=== PATIENT | female | born 1975 | race Caucasian/White ===

== ENCOUNTER 2018-06-05 20:22 | Outpatient (REF) | payer OTHER, SELFPAY ==
[2018-06-05 20:36] LABS: HCT 43.3 % (36.0-46.0); HGB 14.4 g/dL (12.0-15.5); Mean Corp. HGB Concentration 33.3 g/dL (32.0-36.0); Mean Corpuscular Hemoglobin 29.4 pg (27.0-33.0); Mean Corpuscular Volume 88.5 fL (80-95); Mean Platelet Volume 10.6 fL (8.0-11.0); Platelet Count 301 x1000/uL (130-400); RBC 4.89 m/cumm (4.00-5.20); RBC Distribution Width 12.6 % (11.7-14.6); White Blood Cell Count 9.29 k/cumm (4.4-10.8)
[2018-06-05 21:17] LABS: ESR 16 MM/HR (0-20)
[2018-06-05 23:06] LABS: ALT 24 U/L (12-78); AST 14 U/L (15-37); Albumin 4.1 g/dL (3.4-5.0); Alkaline Phosphatase 86 U/L (46-116); BUN 11 mg/dL (7-18); Bilirubin, Total 0.6 mg/dL (0.2-1.0); CREATININE 0.79 mg/dL (0.55-1.02); Calcium 9.7 mg/dL (8.5-10.1); Chloride 102 mmol/L (98-107); Glucose 93 mg/dL (70-100); Potassium 4.3 mmol/L (3.5-5.1); Sodium 139 mmol/L (136-145); Total Protein 7.5 g/dL (6.4-8.2)
[2018-06-07 12:50] LABS: Hepatitis A Antibody IgM Negative (NEGAT); Hepatitis B Core Antibody Negative (NEGAT); Hepatitis B surface Ag Negative (NEGAT); Hepatitis C Ab w Rflx HCV PCR Negative (NEGAT)
== END 2018-06-05 20:42 ==
LOC: NCHCN 20:22
PROVIDERS: PCP Family Medicine; Visit Provider Family Medicine
DX: R19.7 Diarrhea, unspecified (principal)
CPT/HCPCS: 80053; 85027; 85652; 86704; 86709; 86803; 87340

== ENCOUNTER 2018-06-06 06:54 | Outpatient (REF) | payer OTHER, SELFPAY ==
[2018-06-07 10:35] LABS: Campylobacter PCR SEE COMMENTS; Salmonella PCR SEE COMMENTS; Shiga Toxin PCR SEE COMMENTS; Shigella/Enteroinvasive Ecoli SEE COMMENTS
== END 2018-06-06 07:14 ==
LOC: NCHCN 06:54
PROVIDERS: PCP Family Medicine; Visit Provider Family Medicine
DX: R19.7 Diarrhea, unspecified (principal)
CPT/HCPCS: 87329; 87505; 83630; 87177; 87324

== ENCOUNTER 2018-06-08 13:07 | Emergency (ER) | payer OTHER, SELFPAY ==
[2018-06-08 13:12] VITALS: BP 164/114; PULSE 122; RESP 22; TEMP 37.2; O2SAT 98
[2018-06-08 13:45] LABS: Abs Immature Grans 0.02 k/cumm (0.0-0.09); Absolute Basophil Count 0.04 k/cumm (0.0-0.2); Absolute Eosinophil Count 0.26 k/cumm (0.0-0.7); Absolute Neutrophil Count 6.49 k/cumm (1.2-6.7); Basophils % 0.4; Eosinophils % 2.4; HCT 43.4 % (36.0-46.0); HGB 14.9 g/dL (12.0-15.5); Immature Grans % 0.2; Lymphocytes % 29.3; Mean Corp. HGB Concentration 34.3 g/dL (32.0-36.0); Mean Corpuscular Hemoglobin 29.9 pg (27.0-33.0); Mean Platelet Volume 9.8 fL (8.0-11.0); Monocytes % 8.2; Neutrophils % 59.5; Platelet Count 353 x1000/uL (130-400); RBC 4.99 m/cumm (4.00-5.20); RBC Distribution Width 12.5 % (11.7-14.6); White Blood Cell Count 10.91 k/cumm (4.4-10.8)
[2018-06-08] MEDS: Lidocaine 2% Viscous 15 ML CUP (13:47)
--- NOTE | 2018-06-08 13:47 | W.ED.GENAD ---
Discharge Plan Disposition Patient Disposition: HOME Condition: Good Discharge Details Chief Complaint: Abd Prob Clinical Impression: Colitis Primary Care Provider: Shameka Lepe ED Provider: Edvin Myles Home Meds and New Rx's Prescriptions: New ciprofloxacin HCl 500 mg tablet 500 mg PO BID Qty: 20 RF: 0 metronidazole [Flagyl] 500 mg tablet 500 mg PO TID 7 Days Qty: 21 RF: 0 hydrocodone-acetaminophen [[place]] 7.5-325 mg tablet 1 tab PO Q6H PRN PRN (Reason: pain) Qty: 5 RF: 0 No Action albuterol sulfate 8.5 GM HFA aerosol inhaler 2 puff Inhalation Q4H PRN RF: 0 MULTIVTAMIN 1 tab PO DAILY RF: 0 gabapentin 800 MG tablet 800 mg PO Q4H PRN Qty: 30 RF: 3 typhoid vaccin,live,attenuated 2 billion unit capsule,delayed release(DR/EC) See Rx Instructions PO .COMPLEX Qty: 4 RF: 0 valacyclovir 500 MG tablet 500 mg PO TID PRNRF: 0 cholecalciferol (vitamin D3) [Vitamin D3] 400 UNIT capsule 800 unit PO DAILY RF: 0 acetaminophen [Mapap Extra Strength] 500 MG tablet 1,000 mg PO TID Qty: 90 RF: 0 Discharge Instructions Instructions: Colitis (ED) Additional Instructions: Please take the antibiotic as directed. Please take maximum dose of 1000 mg of Tylenol every 6 hours and 600 mg of ibuprofen every 6 hours for improvement of your pain. Please take the [place] only as needed. Do not take it with Tylenol as the [place] does have Tylenol in it. Please take Maalox every 6 hours for control the mild ulcer. If you notice any worsening of your symptoms, or any new symptoms such as vomiting, diarrhea, fever, chills, shortness of breath, chest pain, numbness, weakness, or fainting , please return immediately to the emergency department for reevaluation. Please follow up with your primary care provider as soon as possible for reassessment and reevaluation. As always, it was a pleasure participating in your medical care today. Referrals: Shameka Lepe MD [Primary Care Provider] - Medical Decision Making 42-year-old female who presents for 10 days of diarrhea, light brown in color, no blood. Associated nausea but no vomiting. Pain is been worsening, particularly in the last 4 hours. Describes it as a wrenching-like sensation in her left upper abdominal quadrant. Pain seems to be unrelated to food. Improved by nothing. Exam demonstrates there is surprisingly relatively nontender abdomen except for mild tenderness in the right lower quadrant and left upper quadrant. Differential includes notable gastric ulcer versus pancreatitis versus other acute intra-abdominal pathology. Urolithiasis is less likely but on the differential. We will rehydrate the patient, give a GI cocktail, CT scan to rule out acute process. 3:52 PM Laboratory workup has returned, no significant abnormalities. Heart rate is notably improved. White count is minimally elevated at 10.91, well within normal limits. No significant left shift. No bandemia. Patient's electrolytes are within normal limits. Potassium is 3.4. Lipase is normal. Urinalysis is benign. CT scan results do show evidence of colitis, no evidence of abscess or appendicitis. Patient's pain was improved with GI cocktail, however she still does have some mild to moderate pain. I had a long discussion with family, about additional pain medication options. This time we will do a trial of [place] here, and a few pills to go home with. She has dicyclomine at home already. We will give the first dose of Cipro and Flagyl here for the infectious colitis component. Review of her recent stool studies reveals negative Giardia, C. difficile, and negative ova and parasite. No indication for oral vancomycin. Patient will be discharged home with close follow-up with PCP. I have extensively reviewed the treatment plan and discharge instructions with the patient. I have addressed all patient concerns at this time. The patient was made aware of what symptoms to monitor for that would warrant a return to the emergency department. Discussed the plan with the patient, they demonstrate verbal understanding and agreement with our assessment and plan at this time. COMPARISON: CT ABD PELVIS WITH CONTRAST 12/07/2016 11:42 AM FINDINGS: Lower thorax: No acute findings. ABDOMEN: Liver: Unremarkable. No mass. Gallbladder and bile ducts: Unremarkable. No calcified stones. No ductal dilation. Pancreas: Unremarkable. No ductal dilation. Spleen: Unremarkable. No splenomegaly. Adrenals: Normal. No mass. Kidneys and ureters: Small cyst in the right kidney lower pole, unchanged. Normal left kidney. No hydronephrosis. Stomach and bowel: Minimal wall thickening of the mid and distal descending colon, sigmoid, colon, and rectum with minimal hazy density in the pericolonic fat, consistent with mild colitis in the proper clinical setting. Unremarkable small bowel and stomach. Appendix: No evidence of appendicitis. PELVIS: Bladder: Unremarkable as visualized. Reproductive: Unremarkable as visualized. ABDOMEN and PELVIS: Intraperitoneal space: Unremarkable. No free air. No significant fluid collection. Bones/joints: No acute fracture. Soft tissues: Unremarkable. Vasculature: Unremarkable. No abdominal aortic aneurysm. Lymph nodes: Unremarkable. No enlarged lymph nodes. IMPRESSION: Mild colitis. Dictated and Authenticated by: Cristo Broderick MD. HPI General Date/Time Provider Initiated Documentation: 06/08/18 13:12. HPI Narrative: This is a 42-year-old female with no significant past medical history except for migraines, who presents today for evaluation of diarrhea and abdominal pain. The last 10 days the patient has been having diarrhea, few episodes per day, no blood, it is light brown in color. She has had nausea but no associated vomiting. She describes the pain as a ringing-like sensation in her left upper stomach. It seems to be unrelated to food. She has had a notably decreased appetite though. She did call her primary care provider a few days ago and was started on dicyclomine, and this was helping the pain somewhat, but is no longer helping it at this time. Over the last 4 hours the patient has had notable worsening of her pain, and feels that it cannot be controlled. Pertinent historical component over 3 weeks ago the patient was in [place], at times she did become ill and had fever and diarrhea, she was given Cipro and had complete resolution of her symptoms has been symptom-free for quite some time. Patient denies any other complaints. She denies any vaginal discharge, pelvic pain, chest pain, shortness of breath, tearing sensation in her chest, fever, chills, numbness tingling or weakness. Related Data Home Medications Medication Instructions Recorded Confirmed albuterol sulfate 2 puff INHALATION Q4H PRN inhaler 06/09/14 01/05/17 Multivtamin 1 tab PO DAILY 06/23/14 01/11/17 gabapentin 800 mg PO Q4H PRN #30 tab-cap 12/12/16 cholecalciferol (vitamin D3) 800 unit PO DAILY 01/05/17 01/11/17 [Vitamin D3] valacyclovir 500 mg PO TID PRN 01/05/17 01/05/17 acetaminophen [Mapap Extra 1,000 mg PO TID #90 tab 01/11/17 Strength] typhoid vaccine,live,attenuated 2 See Rx Instructions PO .COMPLEX #4 04/26/18 billion unit capsule,delayed cap release ciprofloxacin HCl 500 mg PO BID #20 tab 06/08/18 hydrocodone-acetaminophen [[place]] 1 tab PO Q6H PRN PRN #5 tab 06/08/18 metronidazole [Flagyl] 500 mg PO TID 7 Days #21 tab 06/08/18 Previous Rx's Medication Instructions Recorded gabapentin 800 mg PO Q4H PRN #30 tab-cap 12/12/16 acetaminophen [Mapap Extra 1,000 mg PO TID #90 tab 01/11/17 Strength] typhoid vaccine,live,attenuated 2 See Rx Instructions PO .COMPLEX #4 04/26/18 billion unit capsule,delayed cap release ciprofloxacin HCl 500 mg PO BID #20 tab 06/08/18 hydrocodone-acetaminophen [[place]] 1 tab PO Q6H PRN PRN #5 tab 06/08/18 metronidazole [Flagyl] 500 mg PO TID 7 Days #21 tab 06/08/18 Allergies Allergy/AdvReac Type Severity Reaction Status Date / Time Sulfa (Sulfonamide Allergy Intermediate Itching Unverified 06/08/18 13:17 Antibiotics) morphine AdvReac Intermediate Itching Unverified 06/08/18 13:17 [From Duramorph (PF)] General Stated Complaint: Abd Prob NORBERT: 3 Review of Systems Review of Systems All systems reviewed & are unremarkable except as noted in HPI and below PFSH Medical History Exercise-induced asthma Migraine Surgical History section Social History Smoking/Tobacco Use Status: Never Drug use: Never Additional Social history: unable to assess. Exam Narrative Exam Narrative: 1.Const: Well-nourished, Well-developed, appearing stated age 2.Eyes: PERRL, no conjunctival injection, and symmetrical lids. 3.ENT: Atraumatic external nose and ears. Moist MM. Neck: Symmetric, trachea midline, No thyromegaly. 4.CVS: +S1/S2, No murmurs or gallops. Peripheral pulses 2+ and equal in all extremities. Brisk capillary refill in all extremities. Dorsalis pedis and posterior tibial pulses +2 bilaterally. 5.RESP: Unlabored respiratory effort. Clear to auscultation bilaterally. No wheezes rales or rhonchi 6.GI: Soft, minimal tenderness, nondistended, No hepatosplenomegaly. No guarding or rebound. Mild tenderness in the right lower quadrant on palpation, minimal tenderness in the left upper quadrant. Bowel sounds are present throughout. Negative Love sign. No flank or CVA tenderness. Negative obturator and psoas sign. 7.MSK: Normocephalic/Atraumatic, Extremities w/o deformity or ttp No cyanosis or clubbing, Normal movement of all extremities 8.Skin: Warm, Dry. No rashes or lesions. 9.Neuro: chainstitch hemmer II-XII grossly intact. Sensation grossly intact, no focal neurologic deficits. 10.Psych: (AAO) x3. Appropriate mood and affect Course Vital Signs Temperature 37.2 C 06/08/18 13:12 Pulse 122 H 06/08/18 13:12 Respiratory Rate 22 06/08/18 13:12 Blood Pressure 164/114 H 06/08/18 13:12 Pulse Oximetry 98 06/08/18 13:12 Temperature 37.2 C 06/08/18 13:12 Temperature Source Temporal Artery Scan 06/08/18 13:12 Pulse 122 H 06/08/18 13:12 Respiratory Rate 22 06/08/18 13:12 Respiratory Effort 06/08/18 13:12 Blood Pressure 164/114 H 06/08/18 13:12 Blood Pressure Position Sitting 06/08/18 13:12 Pulse Oximetry 98 06/08/18 13:12 Oxygen Delivery Method Room Air 06/08/18 13:12 Oxygen Flow Rate 0 06/08/18 13:12
[2018-06-08] MEDS: Mylanta Suspension 30 ML CUP (13:49)
[2018-06-08] MEDS: Sucralfate 1 GM TAB PO (13:49)
[2018-06-08] MEDS: Normal Saline 1,000 ML 1000 ML IV (13:49)
[2018-06-08 13:50] LABS: Absolute Monocyte Count 0.89 k/cumm (0.11-0.7)
[2018-06-08 13:55] LABS: ALT 22 U/L (12-78); AST 14 U/L (15-37); Albumin 4.1 g/dL (3.4-5.0); Alkaline Phosphatase 93 U/L (46-116); Anion Gap 15.4 mmol/L (3-11); BUN 10 mg/dL (7-18); Bilirubin, Total 0.8 mg/dL (0.2-1.0); CO2 22.6 mmol/L (21.0-32.0); CREATININE 0.89 mg/dL (0.55-1.02); Calcium 9.2 mg/dL (8.5-10.1); Chloride 102 mmol/L (98-107); Glucose 114 mg/dL (70-100); Lipase 146 U/L (73-393); Potassium 3.4 mmol/L (3.5-5.1); Sodium 140 mmol/L (136-145); Total Protein 7.8 g/dL (6.4-8.2)
[2018-06-08 14:00] LABS: Bilirubin Negative (Negative); Blood Trace-intact (Negative); Clarity Clear; Glucose Negative (Negative); Ketones Negative (Negative); Leukocyte Esterase Negative (Negative); Nitrite Negative (Negative); Urobilinogen 0.2 EU/dL (Up TO 0.2)
[2018-06-08 14:11] LABS: Bacteria Negative HPF (Negative); C & S Indicated? No; Casts Negative LPF (Negative); Crystals Negative HPF (Negative); Epithelial Cells Many HPF (Negative); Mucus Trace (Negative); RBC Negative (0-2); WBC Negative HPF (0-5)
--- NOTE | 2018-06-08 14:25 | DI.CT_ITS ---
SYMPTOM/DIAGNOSIS: LUQ AND RLQ PAIN, DIARRHEA ABDOMEN AND PELVIC CT: CT examination of the abdomen and pelvis was performed with a bolus infusion of 100 cc's of Omnipaque 350. Images obtained through the lung bases are unremarkable. Liver, spleen and pancreas appear normal. No biliary dilatation is seen. Gallbladder is contracted. Abdominal aorta is of normal diameter and no major vascular abnormality is seen. No abdominal wall hernia is seen. Appendix appears normal. No abdominal or pelvic adenopathy. Adrenals and kidneys are unremarkable except for an incidental lower pole right renal cyst unchanged in appearance from 12/07/16. There is a question of mild wall thickening of rectosigmoid with question of faint pericolonic edema, this is a subtle group of findings but the possibility of colitis is raised. CONCLUSION: The possibility of colitis is raised, please correlate clinically. No additional significant findings.
--- NOTE | 2018-06-08 15:22 | DI.VRAD_ITS ---
EXAM: CT Abdomen and Pelvis With Contrast EXAM DATE/TIME: 06/08/2018 1:27 PM CLINICAL HISTORY: 42 years old, female; Pain; Abdominal pain; Localized; Other: Rlq and luq; Patient HX: Left upper quad pain and rlq pain w/ diarrhea. TECHNIQUE: Imaging protocol: Axial computed tomography images of the abdomen and pelvis with intravenous contrast. Coronal and sagittal reformatted images were created and reviewed. Radiation optimization: All CT scans at this facility use at least one of these dose optimization techniques: automated exposure control; mA and/or kV adjustment per patient size (includes targeted exams where dose is matched to clinical indication); or iterative reconstruction. Contrast material: Omnipaque 350 Contrast volume: 100 ml Contrast route: iv COMPARISON: CT ABD PELVIS WITH CONTRAST 12/07/2016 11:42 AM FINDINGS: Lower thorax: No acute findings. ABDOMEN: Liver: Unremarkable. No mass. Gallbladder and bile ducts: Unremarkable. No calcified stones. No ductal dilation. Pancreas: Unremarkable. No ductal dilation. Spleen: Unremarkable. No splenomegaly. Adrenals: Normal. No mass. Kidneys and ureters: Small cyst in the right kidney lower pole, unchanged. Normal left kidney. No hydronephrosis. Stomach and bowel: Minimal wall thickening of the mid and distal descending colon, sigmoid, colon, and rectum with minimal hazy density in the pericolonic fat, consistent with mild colitis in the proper clinical setting. Unremarkable small bowel and stomach. Appendix: No evidence of appendicitis. PELVIS: Bladder: Unremarkable as visualized. Reproductive: Unremarkable as visualized. ABDOMEN and PELVIS: Intraperitoneal space: Unremarkable. No free air. No significant fluid collection. Bones/joints: No acute fracture. Soft tissues: Unremarkable. Vasculature: Unremarkable. No abdominal aortic aneurysm. Lymph nodes: Unremarkable. No enlarged lymph nodes. IMPRESSION: Mild colitis. Dictated and Authenticated by: Cristo Broderick MD. Ordering:JASKARAN Pardo MD
[2018-06-08] MEDS: metroNIDAZOLE 500 MG TAB PO (16:05)
[2018-06-08] MEDS: Ketorolac 10 MG TAB PO (16:05)
[2018-06-08] MEDS: Ciprofloxacin 500 MG TAB PO (16:05)
[2018-06-08] MEDS: HYDROcodone 5/Acetaminophen 325 TAB (16:20)
[2018-06-08 16:22] VITALS: BP 160/80; PULSE 88; RESP 22; TEMP 37.2; O2SAT 98
== END 2018-06-08 16:22 | disposition home or self-care (01) ==
PROVIDERS: Emergency Provider Student in an Organized Health Care Education/Training Program; PCP Family Medicine
DX: K52.9 Noninfective gastroenteritis and colitis, unspecified (principal)
CPT/HCPCS: 36415; 80053; 81025; 83690; 96360; 99285; 74177; 81003; 81015; 85025; 99284